=== PATIENT | male | born 1985 | race Two or more races ===

== ENCOUNTER 2022-01-22 19:21 | Emergency (ER) | payer SELFPAY ==
[~2022-01-22] VITALS: Ht 180.3 cm; Wt 81.6 kg
[2022-01-22 19:21] VITALS: BP 170/98
[2022-01-22] MEDS ORDERED: ACETAMINOPHEN 325 MG TAB PO ONE (20:00)
[2022-01-22] MEDS ORDERED: CLINDAMYCIN 600MG IV 50 ML IV ONE (20:00)
[2022-01-22] MEDS ORDERED: LACTATED RINGER'S 2,000 ML IV ONE (20:00)
[2022-01-22] MEDS ORDERED: IOHEXOL 300 MG/ML 100ML BOTTLE IJ ONE (20:25)
[2022-01-22 20:46] LABS: Basophils # (auto) 0 10 ^3/uL (0-0.2); Basophils % (auto) 0.3 % (0.0-2.0); Eosinophils # (auto) 0 10 ^3/uL (0-0.8); Hematocrit 40.2 % (41.0-53.0); Hemoglobin 13.9 g/dL (13.5-17.5); Lymphocytes # (auto) 1.4 10 ^3/uL (0.4-5.4); Lymphocytes % (auto) 11.7 % (10.0-50.0); Mean Corpuscular Hemoglobin 31.7 pg (28.0-32.0); Mean Corpuscular Hgb Conc. 34.6 g/dL (32.0-36.0); Mean Corpuscular Volume 91.8 fL (80.0-100.0); Monocytes # (auto) 0.8 10 ^3/uL (0-1.3); Monocytes % (auto) 6.9 % (0.0-12.0); Neutrophils # (auto) 9.5 10 ^3/uL (1.6-8.6); Neutrophils % (auto) 81.1 % (37.0-80.0); Nucleated Red Blood Cells % 0.1 %; Red Blood Cells 4.38 10^6/uL (4.5-5.90); Red Cell Distribution Width 13.1 % (11.8-14.3); White Blood Cell 11.7 10^3/uL (4.4-10.8)
[2022-01-22 21:02] LABS: Albumin 4.2 g/dL (3.4-5.0); BUN/Creatinine Ratio 8.7; Potassium 3.3 mmol/L (3.5-5.1)
[2022-01-22 21:05] LABS: Bilirubin, Total 1.6 mg/dL (0.2-1.0); Total Protein 8.2 g/dL (6.4-8.2)
[2022-01-22] MEDS ORDERED: POTASSIUM EFFERVESENT TAB 25 MEQ PO ONE (22:00)
[2022-01-23] MEDS ORDERED: CEPH-509 PO (10:27)
[2022-01-23] MEDS ORDERED: CLIN-203 PO (10:27)
== END 2022-01-23 10:37 | disposition home or self-care (01) ==
LOC: ER 19:29
DX: L02.01 Cutaneous abscess of face (principal); D72.829 Elevated white blood cell count, unspecified
CPT/HCPCS: 36415; 70487; 70491; 80053; 83605; 85025; 87040; 96365; 99285; J3490; J7030; Q9967